=== PATIENT | male | born 1990 | race African-American/Black ===

== ENCOUNTER 2017-03-31 13:01 | Emergency (ER) | payer OTHER ==
[~2017-03-31] VITALS: Ht 172.7 cm; Wt 75.7 kg
[2017-03-31 13:08] VITALS: BP 107/67
--- NOTE | 2017-03-31 13:59 | Emergency Room Report ---
History of Present Illness General Chief Complaint: Skin Rash/Abscess Source: Patient Present Illness HPI 26 YO Male presents to the ED c/o rash on Right side of the buttocks x 3 days. pt. denies pain, reports moderate sensitivity/burning sensation and tenderness only with palpation. pt. denies itching, or rashes elsewhere on his body. pt. states he did have the chickenpox as a child. pt. denies fevers, chills, nausea , vomiting, neck pain or stiffness. pt. reports erythema. pt. denies recent travel or ill contacts. denies hx of STI. Pt. states he is UTD with tetanus vaccination, denies bleeding. Denies CP, Palpitations, LOC, AMS, dizziness, Changes in Vision, Sensation, paresthesias, or a sudden severe headache. Allergies: Coded Allergies: No Known Allergies (Unverified , 03/31/17) Patient History Past Medical History: see triage record Past Surgical History: none Pertinent Family History: none Immunizations: UTD Reviewed Nursing Documentation: PMH: Agreed, PSxH: Agreed Nursing Documentation-PMH Past Medical History: No History, Except For Review of Systems All Other Systems: negative except mentioned in HPI Physical Exam Vital Signs Date Time Temp Pulse Resp B/P (MAP) Pulse Ox O2 Delivery O2 Flow Rate FiO2 03/31/17 13:08 98.1 76 16 107/67 97 Room Air Sp02 EP Interpretation: reviewed, normal General Appearance: no apparent distress, alert, GCS 15, non-toxic Head: normocephalic, atraumatic Eyes: bilateral eye normal inspection, bilateral eye PERRL ENT: hearing grossly normal, normal pharynx, no angioedema, normal voice Neck: full range of motion, supple/symm/no masses Respiratory: chest non-tender, lungs clear, normal breath sounds, speaking full sentences Cardiovascular #1: regular rate, rhythm, no edema Gastrointestinal: normal bowel sounds, non tender, soft, no guarding, no rebound Rectal: deferred Genitourinary: normal inspection, no CVA tenderness Musculoskeletal: back normal, gait/station normal, normal range of motion, non- tender, no calf tenderness Neurologic: alert, oriented x3, responsive, motor strength/tone normal, sensory intact, speech normal Psychiatric: judgement/insight normal, memory normal, mood/affect normal Skin: normal color, no rash, warm/dry, well hydrated, rash - vessicular rash to the right buttock Lymphatic: no adenopathy Medical Decision Making PA Attestation Dr. Sands is my supervising Physician whom patient management has been discussed with. Diagnostic Impression: Primary Impression: Rash and other nonspecific skin eruption ER Course Pt. presents to the ED c/o rash on Right side of the buttocks x 3 days. Ddx considered but are not limited to cellulitis, scabies, shingles, varicella, dermatitis, urticaria, eczema, tinea Vital signs: are WNL, pt. is afebrile H&PE are most consistent with possible shingles, surrounding erythema suspicious for secondary infection. ORDERS: none required at this time, the diagnosis is clinical ED INTERVENTIONS: None required at this time. DISCHARGE: At this time pt. is stable for d/c to home. Will provide printed patient care instructions, and any necessary prescriptions. Care plan and follow up instructions have been discussed with the patient prior to discharge. Last Vital Signs Date Time Temp Pulse Resp B/P (MAP) Pulse Ox O2 Delivery O2 Flow Rate FiO2 03/31/17 13:08 98.1 76 16 107/67 97 Room Air Disposition: HOME, SELF-CARE Condition: Stable Scripts Bacitracin/Polymyxin B Sulfate (BACITRACIN-POLYMYXIN OINTMENT) 28.35 Gm Oint...g. 1 APPLIC TP BID, #28.3 GM Prov: Hina Sarabia.A. 03/31/17 Trimethoprim/Sulfamethoxazole 160/800* (BACTRIM DS TABLET*) 1 Each Tablet 1 TAB ORAL DAILY for 7 Days, #14 TAB Prov: Hina Sarabia.AEv 03/31/17 Valacyclovir Hcl* (VALTREX*) 500 Mg Tablet 1000 MG ORAL TWICE A DAY for 7 Days, #14 TAB Prov: Hina Sarabia P.A. 03/31/17 Referrals: NOT CHOSEN [facility]/MD,REFERRING (PCP) Patient Instructions: Shingles Additional Instructions: Take medications as directed. Follow up with a Primary Care Provider in 3-5 days, even if your symptoms have resolved. --Please review list of primary care clinics, if you do not already have a primary care provider Return sooner to ED if new symptoms occur, or current symptoms become worse. - Please note that this Emergency Department Report was dictated using [employer] helper technology software, occasionally this can lead to erroneous entry secondary to interpretation by the dictation equipment. Hina Sarabia Mar 31, 2017 13:59
[2017-03-31] MEDS ORDERED: BACITRACIN-P28.35 GM TP (14:00)
[2017-03-31] MEDS ORDERED: BACTRIM DS TAB1 EAC1 ORAL (14:00)
[2017-03-31] MEDS ORDERED: VALACYCLOVIR500 MG ORAL (14:00)
[2017-03-31 14:21] VITALS: BP 99/53
== END 2017-03-31 14:20 | disposition home or self-care (01) ==
LOC: EMR 13:48
DX: R21 Rash and other nonspecific skin eruption (principal)
CPT/HCPCS: 99284